=== PATIENT | female | born 2000 | race Caucasian/White ===

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

== ENCOUNTER 2021-03-03 15:43 | Inpatient (IN) ==
[2021-03-03 16:56] LABS: Urine Appearance Clear; Urine Bilirubin Negative (Negative); Urine Blood Negative (Negative); Urine Color Yellow; Urine Glucose Negative (Negative); Urine Ketones Negative (Negative); Urine Nitrite Negative (Negative); Urine Protein Negative (Negative); Urine Specific Gravity 1.009 (1.002-1.030); Urine Urobilinogen Negative (Negative)
[2021-03-03 17:44] LABS: Urine Benzodiazepine Screen None Detected (None Detect); Urine Cannabinoids Screen None Detected (None Detect); Urine Opiates Screen None Detected (None Detect)
[2021-03-03 17:52] LABS: ABS Basophils 0.1 10^3/ul (0-0.2); ABS Eosinophils 0.1 10^3/ul (0-0.6); ABS Lymphocytes 2.3 10^3/ul (1.0-4.8); ABS Monocytes 0.6 10^3/ul (0-0.8); ABS Neutrophils 7.1 10^3/ul (1.5-7.7); Eosinophil % 0.8 %; Hematocrit 39 % (35-47); Hemoglobin 13.7 g/dL (12.0-16.0); Lymphocyte % 22.6 %; Mean Corpuscular HGB Conc 35 g/dL (31-36); Mean Corpuscular Hemoglobin 29 pg (27-31); Mean Corpuscular Volume 83 fL (80-97); Mean Platelet Volume 10.7 fL (7.4-10.4); Platelet Count 206 10^3/uL (150-450); Red Blood Count 4.75 10^6 /uL (3.70-4.87); Red Cell Distribution Width 13 % (10-15); White Blood Count 10.2 10^3/uL (3.5-10.8)
[2021-03-03 18:20] LABS: ALT 47 U/L (7-52); AST 28 U/L (13-39); Albumin 4.5 g/dL (3.2-5.2); Albumin/Globulin Ratio 1.3 (1-3); Alkaline Phosphatase 66 U/L (35-149); Anion Gap 9 mmol/L (2-11); Blood Urea Nitrogen 10 mg/dL (6-24); CO2 Carbon Dioxide 25 mmol/L (22-32); Calcium 9.9 mg/dL (8.6-10.3); Chloride 104 mmol/L (101-111); Globulin 3.6 g/dL (2-4); Glucose 81 mg/dL (70-100); Potassium 3.7 mmol/L (3.5-5.0); Sodium 138 mmol/L (135-145); Total Protein 8.1 g/dL (6.4-8.9)
[2021-03-03 19:02] LABS: Acetaminophen < 15 mcg/mL; Alcohol, S < 13 mg/dL (<13); Salicylate < 2.50 mg/dL (<30)
[2021-03-03 19:07] LABS: TSH Ultra Thyroid Stim Horm 1.27 mcIU/mL (0.34-5.60)
[2021-03-03 22:47] LABS: Rapid COVID-19 Molecular Undetected (Undetected)
[2021-03-03] MEDS ORDERED: Al Hydrox/Mg Hydrox/Simet LIQ 30 ML UDC PO PRN (22:50)
[2021-03-04] MEDS: Norethindrone/Eth Est 1.5/30NF TAB PO SCH (09:56)
[2021-03-04] MEDS: Vitamin THERAPEUTIC TAB PO SCH (09:57)
[2021-03-05] MEDS: Vitamin THERAPEUTIC TAB PO SCH (08:10)
[2021-03-05] MEDS: Norethindrone/Eth Est 1.5/30NF TAB PO SCH (08:10)
[2021-03-06] MEDS: Vitamin THERAPEUTIC TAB PO SCH (07:30)
[2021-03-06] MEDS: Norethindrone/Eth Est 1.5/30NF TAB PO SCH (08:00)
[2021-03-07] MEDS: Vitamin THERAPEUTIC TAB PO SCH (09:18)
[2021-03-07] MEDS: Norethindrone/Eth Est 1.5/30NF TAB PO SCH (09:19)
[2021-03-08] MEDS: Vitamin THERAPEUTIC TAB PO SCH (09:29)
[2021-03-08] MEDS: Norethindrone/Eth Est 1.5/30NF TAB PO SCH (09:30)
[2021-03-09] MEDS: Vitamin THERAPEUTIC TAB PO SCH (07:40)
[2021-03-09] MEDS: Norethindrone/Eth Est 1.5/30NF TAB PO SCH (07:42)
[2021-03-10] MEDS: Vitamin THERAPEUTIC TAB PO SCH (08:52)
[2021-03-10] MEDS: Norethindrone/Eth Est 1.5/30NF TAB PO SCH (08:53)
[2021-03-10 10:28] VITALS: BP 123/58
== END 2021-03-10 14:05 | disposition home or self-care (01) | DRG 755 ==
LOC: ED 15:43 → BSU 22:30
PROVIDERS: ADMIT Psychiatry & Neurology Psychiatry; ATTEND Psychiatry & Neurology Psychiatry

== ENCOUNTER 2021-06-20 16:01 | Inpatient (IN) ==
[2021-06-20 17:08] LABS: ABS Basophils 0.1 10^3/ul (0-0.2); ABS Eosinophils 0.1 10^3/ul (0-0.6); ABS Lymphocytes 2.4 10^3/ul (1.0-4.8); ABS Monocytes 0.5 10^3/ul (0-0.8); ABS Neutrophils 4.7 10^3/ul (1.5-7.7); Eosinophil % 1.2 %; Hematocrit 39 % (35-47); Hemoglobin 13.3 g/dL (12.0-16.0); Lymphocyte % 31.2 %; Mean Corpuscular HGB Conc 34 g/dL (31-36); Mean Corpuscular Hemoglobin 28 pg (27-31); Mean Corpuscular Volume 83 fL (80-97); Mean Platelet Volume 10.2 fL (7.4-10.4); Nucleated Red Blood Cells % 0.1; Platelet Count 220 10^3/uL (150-450); Red Blood Count 4.73 10^6 /uL (3.70-4.87); Red Cell Distribution Width 13 % (10-15); White Blood Count 7.8 10^3/uL (3.5-10.8)
[2021-06-20 17:26] LABS: ALT 26 U/L (7-52); AST 18 U/L (13-39); Albumin 4.4 g/dL (3.2-5.2); Albumin/Globulin Ratio 1.2 (1-3); Alkaline Phosphatase 58 U/L (35-149); Anion Gap 6 mmol/L (2-11); Blood Urea Nitrogen 14 mg/dL (6-24); CO2 Carbon Dioxide 26 mmol/L (22-32); Calcium 9.7 mg/dL (8.6-10.3); Chloride 106 mmol/L (101-111); Globulin 3.6 g/dL (2-4); Glucose 88 mg/dL (70-100); Sodium 138 mmol/L (135-145); eGFR CKD-EPI 102.6 (>60)
[2021-06-20 17:34] LABS: Alcohol, S < 13 mg/dL (<13); Salicylate < 2.50 mg/dL (<30)
[2021-06-20 17:38] LABS: Urine Benzodiazepine Screen None Detected (None Detect); Urine Cannabinoids Screen None Detected (None Detect); Urine Opiates Screen None Detected (None Detect)
[2021-06-20 17:40] LABS: Urine Appearance Cloudy; Urine Bilirubin Negative (Negative); Urine Blood Negative (Negative); Urine Color Yellow; Urine Glucose Negative (Negative); Urine Ketones Negative (Negative); Urine Nitrite Negative (Negative); Urine Protein Negative (Negative); Urine Specific Gravity 1.015 (1.002-1.030); Urine Urobilinogen Negative (Negative)
[2021-06-20 17:49] LABS: Acetaminophen < 15 mcg/mL
[2021-06-20 17:50] LABS: TSH Ultra Thyroid Stim Horm 2.28 mcIU/mL (0.34-5.60)
[2021-06-20] MEDS ORDERED: Al Hydrox/Mg Hydrox/Simet LIQ 30 ML UDC PO PRN (21:12)
[2021-06-21] MEDS: Vitamin THERAPEUTIC TAB PO SCH (10:40)
[2021-06-22] MEDS: Vitamin THERAPEUTIC TAB PO SCH (07:52)
[2021-06-23 08:17] LABS: HDL Cholesterol 47.5 mg/dL
[2021-06-23] MEDS: Vitamin THERAPEUTIC TAB PO SCH (09:48)
[2021-06-24] MEDS: Vitamin THERAPEUTIC TAB PO SCH (07:52)
[2021-06-24 08:02] VITALS: BP 132/67
== END 2021-06-24 15:41 | disposition home or self-care (01) | DRG 751 ==
LOC: ED 16:01 → BSU 19:35
PROVIDERS: ADMIT Psychiatry & Neurology Psychiatry; ATTEND Psychiatry & Neurology Psychiatry

== ENCOUNTER 2021-08-27 14:47 | Inpatient (IN) ==
[2021-08-27 16:41] LABS: Urine Appearance Cloudy; Urine Bilirubin Negative (Negative); Urine Blood Negative (Negative); Urine Color Yellow; Urine Glucose Negative (Negative); Urine Ketones Negative (Negative); Urine Nitrite Negative (Negative); Urine Protein Negative (Negative); Urine Specific Gravity 1.012 (1.002-1.030); Urine Urobilinogen Negative (Negative)
[2021-08-27 16:52] LABS: Urine Benzodiazepine Screen None Detected (None Detect); Urine Cannabinoids Screen None Detected (None Detect); Urine Opiates Screen None Detected (None Detect)
[2021-08-27 18:48] LABS: ABS Basophils 0.1 10^3/ul (0-0.2); ABS Eosinophils 0.2 10^3/ul (0-0.6); ABS Lymphocytes 2.9 10^3/ul (1.0-4.8); ABS Monocytes 0.4 10^3/ul (0-0.8); ABS Neutrophils 3.7 10^3/ul (1.5-7.7); Eosinophil % 2.1 %; Hematocrit 40 % (35-47); Hemoglobin 13.6 g/dL (12.0-16.0); Lymphocyte % 39.9 %; Mean Corpuscular HGB Conc 34 g/dL (31-36); Mean Corpuscular Hemoglobin 28 pg (27-31); Mean Corpuscular Volume 84 fL (80-97); Mean Platelet Volume 9.3 fL (7.4-10.4); Nucleated Red Blood Cells % 0.2; Platelet Count 204 10^3/uL (150-450); Red Blood Count 4.81 10^6 /uL (3.70-4.87); Red Cell Distribution Width 13 % (10-15); White Blood Count 7.2 10^3/uL (3.5-10.8)
[2021-08-27 19:15] LABS: ALT 45 U/L (7-52); AST 25 U/L (13-39); Acetaminophen < 15 mcg/mL; Albumin 4.3 g/dL (3.2-5.2); Albumin/Globulin Ratio 1.3 (1-3); Alcohol, S < 13 mg/dL (<13); Alkaline Phosphatase 69 U/L (35-149); Anion Gap 6 mmol/L (2-11); Blood Urea Nitrogen 11 mg/dL (6-24); CO2 Carbon Dioxide 28 mmol/L (22-32); Calcium 9.3 mg/dL (8.6-10.3); Chloride 104 mmol/L (101-111); Globulin 3.4 g/dL (2-4); Glucose 89 mg/dL (70-100); Potassium 3.8 mmol/L (3.5-5.0); Salicylate < 2.50 mg/dL (<30); Sodium 138 mmol/L (135-145); Total Protein 7.7 g/dL (6.4-8.9); eGFR CKD-EPI 108.8 (>60)
[2021-08-27 19:19] LABS: HCG Pregnancy < 0.60 mIU/mL
[2021-08-27 19:26] LABS: TSH Ultra Thyroid Stim Horm 1.06 mcIU/mL (0.34-5.60)
[2021-08-27] MEDS ORDERED: Al Hydrox/Mg Hydrox/Simet LIQ 30 ML UDC PO PRN (19:30)
[2021-08-28] MEDS: Vitamin THERAPEUTIC TAB PO SCH (08:59)
[2021-08-29 08:12] VITALS: BP 116/65
[2021-08-29] MEDS: Vitamin THERAPEUTIC TAB PO SCH (08:52)
== END 2021-08-29 19:20 | disposition home or self-care (01) | DRG 754 ==
LOC: ED 14:47 → BSU 19:32
PROVIDERS: ADMIT Psychiatry & Neurology Psychiatry; ATTEND Psychiatry & Neurology Psychiatry

== ENCOUNTER 2021-12-26 13:55 | Inpatient (IN) ==
[2021-12-26 14:49] LABS: Urine Appearance Clear; Urine Bilirubin Negative (Negative); Urine Blood Negative (Negative); Urine Color Yellow; Urine Glucose Negative (Negative); Urine Ketones Negative (Negative); Urine Nitrite Negative (Negative); Urine Protein Negative (Negative); Urine Specific Gravity 1.024 (1.002-1.030); Urine Urobilinogen 0.2 (Negative) (Negative); Urine pH 5.5 (5.0-9.0)
[2021-12-26 15:09] LABS: Urine Benzodiazepine Screen None Detected (None Detect); Urine Cannabinoids Screen None Detected (None Detect); Urine Opiates Screen None Detected (None Detect)
[2021-12-26] MEDS ORDERED: Al Hydrox/Mg Hydrox/Simet LIQ 30 ML UDC PO PRN (17:20)
[2021-12-27] MEDS: Vitamin THERAPEUTIC TAB PO SCH (08:12)
[2021-12-28] MEDS: Vitamin THERAPEUTIC TAB PO SCH (07:52)
[2021-12-28 08:06] LABS: ABS Basophils 0.1 10^3/ul (0-0.2); ABS Eosinophils 0.1 10^3/ul (0-0.6); ABS Lymphocytes 2.5 10^3/ul (1.0-4.8); ABS Monocytes 0.5 10^3/ul (0-0.8); ABS Neutrophils 4.3 10^3/ul (1.5-7.7); Eosinophil % 1.1 %; Hematocrit 40 % (35-47); Hemoglobin 13.6 g/dL (12.0-16.0); Mean Corpuscular HGB Conc 34 g/dL (31-36); Mean Corpuscular Hemoglobin 28 pg (27-31); Mean Corpuscular Volume 83 fL (80-97); Mean Platelet Volume 10.5 fL (7.4-10.4); Nucleated Red Blood Cells % 0.1; Platelet Count 198 10^3/uL (150-450); Red Blood Count 4.84 10^6 /uL (3.70-4.87); Red Cell Distribution Width 13 % (10-15); White Blood Count 7.5 10^3/uL (3.5-10.8)
[2021-12-28 08:42] LABS: Anion Gap 8 mmol/L (2-11); Blood Urea Nitrogen 10 mg/dL (6-24); CO2 Carbon Dioxide 25 mmol/L (22-32); Calcium 9.7 mg/dL (8.6-10.3); Chloride 104 mmol/L (101-111); Cholesterol 265 mg/dL; Glucose 85 mg/dL (70-100); LDL Cholesterol 187 mg/dL; Potassium 4.4 mmol/L (3.5-5.0); Sodium 137 mmol/L (135-145); Triglycerides 167 mg/dL; eGFR CKD-EPI 118.7 (>60)
[2021-12-28 08:48] LABS: HCG Pregnancy < 0.60 mIU/mL
[2021-12-28 08:57] LABS: TSH Ultra Thyroid Stim Horm 1.43 mcIU/mL (0.34-5.60)
[2021-12-29] MEDS: Vitamin THERAPEUTIC TAB PO SCH (09:37)
[2021-12-29 18:41] VITALS: BP 122/72
[2021-12-30] MEDS: Vitamin THERAPEUTIC TAB PO SCH (08:07)
== END 2021-12-30 12:02 | disposition home or self-care (01) | DRG 754 ==
LOC: ED 13:55 → BSU 16:52
PROVIDERS: ADMIT Psychiatry & Neurology Psychiatry; ATTEND Psychiatry & Neurology Psychiatry